=== PATIENT | female | born 1940 | race Caucasian/White ===

== ENCOUNTER 2020-11-17 12:47 | Inpatient (IN) | payer MEDICARE, SELFPAY ==
[2020-11-17 16:39] VITALS: BMI 26.9
[2020-11-17] MEDS ORDERED: hydrALAZINE 20 MG/ML VIAL SLOW IVP PRN ×2 (16:59→18:40)
[2020-11-17] MEDS ORDERED: hydrALAZINE 20 MG/ML VIAL SLOW IVP SCH (17:15)
[2020-11-17] MEDS ORDERED: Ondansetron PF 4 MG/2 ML Vial IVP PRN (18:31)
[2020-11-17] MEDS ORDERED: HumaLOG 300 UNITS/3 ML VIAL SC PRN (18:41)
[2020-11-17] MEDS ORDERED: Dextrose 50% Abboject 50 ML SYRINGE SLOW IVP PRN (18:41)
[2020-11-17] MEDS ORDERED: Dextrose 5% in Water 1,000 ML IV PRN (18:41)
[2020-11-17 20:12] LABS: Troponin I 0.121 ng/mL (< 0.028)
[2020-11-17] MEDS: Acetaminophen 325 MG TAB PO PRN (23:21)
[2020-11-18] MEDS ORDERED: hydrALAZINE 20 MG/ML VIAL SLOW IVP SCH (01:15)
[2020-11-18 05:32] LABS: #Basophils 0.2 thou/uL (0.0-0.2); #Lymphocytes 1.3 thou/uL (1.20-3.40); #Monocytes 0.9 thou/uL (0.11-0.59); #Neutrophils 10.1 thou/uL (1.40-6.50); %Basophils 1.3 % (0.0-1.0); %Eosinophils 0.2 % (0.0-10.0); %Lymphocytes 10.5 % (21.0-51.0); %Monocytes 7.3 % (0.0-10.0); %Neutrophils 80.7 % (42.0-75.0); Hemoglobin 13.4 g/dL (14.0-18.0); Mean Corpuscular HGB CONC 32.9 g/dL (32.0-36.0); Mean Corpuscular Hemoglobin 29.4 pg (27.0-31.0); Mean Corpuscular Volume 89.4 fL (78.0-98.0); Mean Platelet Volume 7.7 fL (7.4-10.4); Platelet Count 361 thou/uL (130-400); RBC Distribution Width 12.4 % (11.5-14.5); Red Blood Cell (RBC) Count 4.56 mill/uL (4.70-6.10); White Blood Cell (WBC) Count 12.5 thou/uL (4.8-10.8)
[2020-11-18 05:37] LABS: Hemoglobin A1c 5.7 % (4.0-6.0)
[2020-11-18 05:49] LABS: Anion Gap 18 mmol/L (10-20); BUN (Urea Nitrogen) 12 mg/dL (8.4-25.7); Calc. Creatinine Clearance 57 mL/min (70-130); Calcium 9.7 mg/dL (7.8-10.44); Carbon Dioxide 19 mmol/L (23-31); Cardiac Risk 2.3 (Less than 4.5); Chloride 104 mmol/L (98-107); Cholesterol 120 mg/dl (< 200 Desired); Glucose 146 mg/dL (83-110); HDL Cholesterol 53 mg/dL (>60 Neg Risk); LDL Cholesterol, Calculated 52 mg/dL; Potassium 3.3 mmol/L (3.5-5.1); Sodium 138 mmol/L (136-145); Triglycerides 73 mg/dL (Less than 150)
[2020-11-18] MEDS ORDERED: Loratadine 10 MG TAB PO PRN (07:34)
[2020-11-18] MEDS ORDERED: Sodium Chloride 0.65% Nasal 44 ML BOT EA NARE PRN (07:34)
[2020-11-18] MEDS ORDERED: GUAIFENESIN SF SOLN 200 MG/10 ML UDCUP PO PRN (07:34)
[2020-11-18] MEDS ORDERED: Calcium Carbonate 500 MG ChewTAB PO PRN (07:34)
[2020-11-18] MEDS ORDERED: Senokot S 8.6-50 MG TAB PO PRN (07:34)
[2020-11-18] MEDS ORDERED: Bisacodyl 5 MG TAB PO PRN (07:34)
[2020-11-18] MEDS ORDERED: Cepastat Lozenges 1 LOZ PO PRN (07:34)
[2020-11-18] MEDS ORDERED: Loperamide HCl 2 MG CAP PO PRN (07:34)
[2020-11-18] MEDS ORDERED: Potassium Chloride 20 MEQ TAB PO SCH (07:45)
[2020-11-18 08:36] LABS: Troponin I 0.111 ng/mL (< 0.028)
[2020-11-18] MEDS: Acyclovir 200 mg Capsule PO SCH (10:59)
[2020-11-18] MEDS: Aspirin 81 mg Enteric Coated Tablet PO SCH (11:00)
[2020-11-18] MEDS: Acetaminophen 325 MG TAB PO PRN (11:02)
[2020-11-18] MEDS: Carvedilol 3.125 MG TAB PO SCH ×2 (11:04→20:53)
[2020-11-18] MEDS: hydrALAZINE 20 MG/ML VIAL SLOW IVP PRN ×3 (11:14→20:51)
[2020-11-18] MEDS ORDERED: Lorazepam 1 MG TAB PO PRN (15:00)
[2020-11-18] MEDS ORDERED: Morphine 2 MG/ML VIAL SLOW IVP SCH (15:15)
[2020-11-18] MEDS ORDERED: Promethazine HCl 12.5 MG in Sodium Chloride 0.9% 50 ML IVPB SCH (15:15)
[2020-11-18 19:35] LABS: Bacteria/HPF 4+ HPF (None Seen); Bilirubin Negative (Negative); Blood, Urine Trace (Negative); Clarity Turbid (Clear); Glucose, Urine (Dipstick) Normal (Negative); Ketone, Urine 10 mg/dL (Negative); Leukocyte 500 Leu/uL (Negative); Nitrite Negative (Negative); Protein, Urine (Dipstick) 100 mg/dL (Neg-Trace); Renal Epithelial 0-3 HPF (None Seen); Squamous Epithelial None Seen HPF (0-3); Urobilinogen Normal mg/dL (Less than 2); WBC/HPF Greater than 50 HPF (0-3)
[2020-11-18] MEDS: Atorvastatin Calcium 10 MG TAB PO SCH (20:51)
[2020-11-18] MEDS: Zolpidem Tartrate 5 MG TAB PO PRN (20:51)
[2020-11-18] MEDS: cefTRIAXone\\ROCEPHIN 1 GM in Sodium Chloride 0.9% 100 ML IVPB SCH (20:53)
[2020-11-19] MEDS: hydrALAZINE 20 MG/ML VIAL SLOW IVP PRN ×2 (03:34→12:42)
[2020-11-19] MEDS ORDERED: Promethazine HCl 12.5 MG in Sodium Chloride 0.9% 50 ML IVPB PRN (08:10)
[2020-11-19] MEDS: Ondansetron ODT 4 MG TAB PO PRN ×2 (08:14→13:37)
[2020-11-19] MEDS: Aspirin 81 mg Enteric Coated Tablet PO SCH (08:14)
[2020-11-19] MEDS: Carvedilol 3.125 MG TAB PO SCH ×2 (08:15→20:25)
[2020-11-19] MEDS: Acyclovir 200 mg Capsule PO SCH (08:15)
[2020-11-19] MEDS ORDERED: Ketorolac Tromethamine 30 MG/ML VIAL IVP PRN (11:53)
[2020-11-19] MEDS: HumaLOG 300 UNITS/3 ML VIAL SC PRN ×2 (11:54→17:09)
[2020-11-19] MEDS ORDERED: Ketorolac Tromethamine 30 MG/ML VIAL IVP SCH (12:00)
[2020-11-19] MEDS: Atorvastatin Calcium 10 MG TAB PO SCH (20:24)
[2020-11-19] MEDS: Zolpidem Tartrate 5 MG TAB PO PRN (20:25)
[2020-11-19] MEDS: cefTRIAXone\\ROCEPHIN 1 GM in Sodium Chloride 0.9% 100 ML IVPB SCH (20:25)
[2020-11-20 05:21] LABS: #Eosinphils 0.1 thou/uL (0.0-0.7); #Lymphocytes 1.9 thou/uL (1.20-3.40); #Monocytes 0.7 thou/uL (0.11-0.59); #Neutrophils 6.6 thou/uL (1.40-6.50); %Basophils 0.3 % (0.0-1.0); %Eosinophils 1.5 % (0.0-10.0); %Lymphocytes 20.5 % (21.0-51.0); %Monocytes 7.7 % (0.0-10.0); %Neutrophils 70.1 % (42.0-75.0); Hemoglobin 13.4 g/dL (12.0-16.0); Mean Corpuscular Hemoglobin 29.9 pg (27.0-31.0); Mean Corpuscular Volume 90.5 fL (78.0-98.0); Mean Platelet Volume 7.7 fL (7.4-10.4); Platelet Count 335 thou/uL (130-400); RBC Distribution Width 12.7 % (11.5-14.5); Red Blood Cell (RBC) Count 4.47 mill/uL (4.20-5.40); White Blood Cell (WBC) Count 9.4 thou/uL (4.8-10.8)
[2020-11-20 05:44] LABS: ALT (SGPT) 17 U/L (8-55); AST (SGOT) 21 U/L (5-34); Albumin 3.8 g/dL (3.4-4.8); Alkaline Phosphatase 59 U/L (40-110); Anion Gap 17 mmol/L (10-20); BUN (Urea Nitrogen) 18 mg/dL (9.8-20.1); Bilirubin, Total 0.4 mg/dL (0.2-1.2); Calc. Creatinine Clearance 41 mL/min (70-130); Calcium 9.2 mg/dL (7.8-10.44); Carbon Dioxide 19 mmol/L (23-31); Chloride 103 mmol/L (98-107); Glucose 125 mg/dL (83-110); Magnesium 1.5 mg/dL (1.6-2.6); Phosphorus 2.6 mg/dL (2.3-4.7); Potassium 3.5 mmol/L (3.5-5.1); Protein, Total 6.8 g/dL (5.8-8.1); Sodium 135 mmol/L (136-145)
[2020-11-20] MEDS ORDERED: Spironolactone 25 MG TAB PO SCH (08:00)
[2020-11-20] MEDS ORDERED: Carvedilol 6.25 MG TAB PO SCH (08:00)
[2020-11-20] MEDS ORDERED: Magnesium Sulfate 3 GM in Sodium Chloride 0.9% 100 ML IVPB SCH (08:00)
[2020-11-20] MEDS: Aspirin 81 mg Enteric Coated Tablet PO SCH (08:49)
[2020-11-20] MEDS: Ondansetron ODT 4 MG TAB PO PRN ×2 (08:50→14:12)
[2020-11-20] MEDS: Acetaminophen 325 MG TAB PO PRN (08:51)
[2020-11-20] MEDS: Acyclovir 200 mg Capsule PO SCH (08:52)
[2020-11-20] MEDS ORDERED: Saccharomyces boulardii 250 MG CAP PO SCH (10:15)
[2020-11-20 11:46] VITALS: TEMP 97.7
[2020-11-20 12:01] VITALS: BP 146/70
[2020-11-21] MEDS ORDERED: Saccharomyces boulardii 250 MG CAP PO SCH (09:00)
== END 2020-11-20 14:49 | disposition home health service (06) | DRG 69 ==
LOC: 2SE 12:47 → EDSEX 18:31 → OBSVTOIN 18:31
PROVIDERS: ADMIT Family Medicine; ATTEND Internal Medicine
DX: G45.9 Transient cerebral ischemic attack, unspecified (principal); N39.0 Urinary tract infection, site not specified; R79.89 Other specified abnormal findings of blood chemistry; I10 Essential (primary) hypertension; E78.5 Hyperlipidemia, unspecified; F32.9 Major depressive disorder, single episode, unspecified; Z88.1 Allergy status to other antibiotic agents; Z88.5 Allergy status to narcotic agent; Z88.8 Allergy status to other drugs, medicaments and biological substances; Z79.82 Long term (current) use of aspirin; Z79.899 Other long term (current) drug therapy
CPT/HCPCS: 36415; 36416; 70551; 80048; 80053; 80061; 81003; 81015; 83036; 83735; 84100; 84484; 85025; 93306; 93880; 95712; 95819; 95957; J0360; J0696; J1885; J2270; J2405; J2550; J3475; J3490; Q0162